=== PATIENT | female | born 1945 | race Caucasian/White ===

== ENCOUNTER 2017-08-21 08:28 | Day surgery (SDC) | payer MEDICARE, BC ==
[~2017-08-21] VITALS: Ht 167.6 cm; Wt 78.2 kg
[2017-08-21 08:51] VITALS: BP 190/90; PULSE 78; RESP 20; TEMP 98.3; O2SAT 98
[2017-08-21 09:47] VITALS: BP 156/79
[2017-08-21] MEDS ORDERED: SODIUM CHLORIDE 2 ML FLUSH PRN IV FLUSH (10:45)
[2017-08-21] MEDS ORDERED: IMPLANTED VASCULAR ACCESS DEVICE/PORT - SODIUM CHLORIDE FLUSH IV FLUSH SCH (10:45)
[2017-08-21] MEDS ORDERED: IMPLANTED VASCULAR ACCESS DEVICE/PORT - SODIUM CHLORIDE FLUSH PRN IV FLUSH (10:45)
[2017-08-21] MEDS ORDERED: SODIUM CHLOR 0.9% 1000 ML IV SCH (10:45)
[2017-08-21] MEDS ORDERED: LIDOCAINE HCL 1% 20 ML VIAL ONE (10:46)
[2017-08-21] MEDS ORDERED: MIDAZOLAM HCL 2 MG/2 ML VIAL ONE (11:33)
[2017-08-21 12:25] VITALS: BP 146/67; PULSE 58; RESP 20; TEMP 97.8; O2SAT 95
[2017-08-21 12:40] VITALS: BP 141/71; PULSE 56; RESP 20; O2SAT 92
[2017-08-21 13:10] VITALS: BP 146/68; PULSE 60; RESP 20; O2SAT 95
[2017-08-21 13:40] VITALS: BP 152/71; PULSE 69; RESP 20; O2SAT 95
--- NOTE | 2017-08-21 14:57 | RADRPT ---
EXAM DATE/TIME: 08/21/2017 11:36 [facility] COMPARISON: No previous studies available for comparison. INDICATIONS : Mesenteric lymph nodes. SEDATION TIME: 30 minutes BIOPSY SITE: Left MEDICATION(S): 1.) 4 mg midazolam (Versed) IV 2.) 200 mcg fentanyl (Sublimaze) IV DEVICE(S): 1.) 18 gauge Temno core biopsy needle MEDICAL HISTORY : Hypertension. SURGICAL HISTORY : Hysterectomy. ENCOUNTER: Initial ACUITY: 1 day PAIN SCORE: 0/10 LOCATION: Mesentery A total of two core specimen(s) were obtained and sent to the laboratory for pathologic evaluation. PROCEDURE: 1. CT guided abdomen biopsy. 2. Conscious sedation with continuous EKG and oximetry monitoring. 3. EKG and oximetry remained stable throughout the procedure. Prior to the procedure informed consent was obtained. Any appropriate prior imaging studies were rev iewed. Using automated exposure control and adjustment of the mA and/or kV according to patient size, radiat ion dose was kept as low as reasonably achievable to obtain optimal diagnostic quality images. DICOM format image data is available electronically for review and comparison. The site was prepped in a sterile fashion. Full sterile technique was used, including cap, mask, janet rile gloves and gown and a large sterile sheet. Hand hygiene and 2% chlorhexidine and/or betadine/al cohol prep was utilized per protocol for cutaneous antisepsis. The skin and subcutaneous tissues wer e infiltrated with local anesthetic solution. With CT guidance the previously identified target was localized. Biopsy was performed using the presc ribed needle as above. Adequate hemostasis was obtained with compression at the puncture site. Follow-up CT scan reveals no hemorrhage. The patient tolerated the procedure well and there were no complications. The patient was returned to the Radiology Outpatient Unit in stable condition. CONCLUSION: Uncomplicated CT guided biopsy. Alen Valdes MD on August 21, 2017 at 14:55 Board Certified Radiologist. This report was verified electronically.
[2017-08-21] MEDS ORDERED: SODIUM CHLORIDE 2 ML FLUSH BID IV FLUSH SCH (21:00)
== END 2017-08-21 14:34 | disposition home or self-care (01) ==
LOC: HRAD 08:28 → HRIP 08:29 → HRAD 12:45
PROVIDERS: ATTEND Internal Medicine
DX: C82.90 Follicular lymphoma, unspecified, unspecified site (principal); I10 Essential (primary) hypertension; K21.9 Gastro-esophageal reflux disease without esophagitis
CPT/HCPCS: 49180; 77012; 88184; 88185; 88305; 99152; 99153; J2250; J3010

== ENCOUNTER 2017-09-04 06:55 | Day surgery (SDC) | payer MEDICARE, BC ==
[~2017-09-04] VITALS: Ht 167.6 cm; Wt 78.0 kg
[2017-09-04] VITALS (9 sets, daily range): BP systolic 131–178; BP diastolic 63–86; PULSE 58–82; RESP 16–20; TEMP 97.6–98.3; O2SAT 96–97
[2017-09-04] MEDS ORDERED: TELM1TAB4 PO (07:24)
[2017-09-04] MEDS ORDERED: ASPI81TA23 PO (07:24)
[2017-09-04] MEDS ORDERED: VITA100021 SL (07:24)
[2017-09-04] MEDS ORDERED: PRIL20TA2 (07:24)
[2017-09-04] MEDS ORDERED: SODIUM CHLOR 0.9% 1000 ML IV SCH (07:45)
[2017-09-04 07:55] LABS: AUTOMATED NEUTROPHIL # 3.7 TH/MM3 (1.8-7.7); BASOPHIL % 0.4 % (0.0-2.0); EOSINOPHIL # 0.1 TH/MM3 (0-0.4); EOSINOPHIL % 2.2 % (0.0-4.0); HEMOGLOBIN 13.5 GM/DL (11.6-15.3); LYMPHOCYTE # 0.7 TH/MM3 (1.0-4.8); MEAN CELL VOLUME 87.7 FL (80.0-100.0); MEAN CORPUSCULAR HEMOGLOBIN 31.2 PG (27.0-34.0); MEAN CORPUSCULAR HGB CONC 35.5 % (32.0-36.0); MEAN PLATELET VOLUME 7.2 FL (7.0-11.0); MONO % 8.5 % (0.0-8.0); MONOCYTE # 0.4 TH/MM3 (0-0.9); NEUT % 74.9 % (16.0-70.0); PLATELET COUNT 204 TH/MM3 (150-450); RED BLOOD COUNT 4.33 MIL/MM3 (4.00-5.30); RED CELL DISTRIBUTION WIDTH 13.7 % (11.6-17.2); WHITE BLOOD COUNT 4.9 TH/MM3 (4.0-11.0)
[2017-09-04] MEDS ORDERED: MIDAZOLAM HCL 2 MG/2 ML VIAL ONE ×2 (08:13→08:55)
[2017-09-04] MEDS ORDERED: fentaNYL CITRATE 250 MCG/5 ML AMP ONE (08:14)
[2017-09-04] MEDS ORDERED: LIDOCAINE HCL 1% 20 ML VIAL ONE (08:22)
--- NOTE | 2017-09-04 09:09 | PD.RAD ---
Post Procedure Progress Note Pre Procedure Diagnosis: (1) Lymphoma Post Procedure Diagnosis: (1) Lymphoma Procedure Date: Sep 04, 2017 Supervising Radiologist: Stanislaw Stubbs Estimated blood loss: 3cc Anesthesia: Local, Conscious Sedation Plan of Activity Patient to Unit: ROPU Patient Condition: Good Additional Comments: Left Iliac wing bone marrow biopsy completed Full dictated report to follow. See PACS Report for procedural detail/treatment Stanislaw Stubbs MD Sep 04, 2017 09:09
--- NOTE | 2017-09-04 09:44 | RADRPT ---
EXAM DATE/TIME: 09/04/2017 08:38 [facility] COMPARISON: CT NEEDLE BIOPSY ABDOMEN, August 21, 2017, 11:36. INDICATIONS : Lymphoma. SEDATION TIME: 30 minutes BIOPSY SITE: Left iliac MEDICATION(S): 1.) 5 mg midazolam (Versed) IV 2.) 250 mcg fentanyl (Sublimaze) IV DEVICE(S): 1.) 11 gauge Bone marrow biopsy needle MEDICAL HISTORY : Lymphoma. SURGICAL HISTORY : Cholecystectomy Appendectomy. Hysterectomy. ENCOUNTER: Initial ACUITY: 1 day PAIN SCORE: 0/10 LOCATION: Left pelvis A total of one core specimen(s) were obtained and sent to the laboratory for pathologic evaluation. PROCEDURE: 1. CT guided bone marrow biopsy. 2. Conscious sedation with continuous EKG and oximetry monitoring. Prior to the procedure informed consent was obtained. Any appropriate prior imaging studies were rev iewed. Using automated exposure control and adjustment of the mA and/or kV according to patient size , radiation dose was kept as low as reasonably achievable to obtain optimal diagnostic quality images . DICOM format image data is available electronically for review and comparison. The site was prepped in a sterile fashion. Full sterile technique was used, including cap, mask, janet rile gloves and gown and a large sterile sheet. Hand hygiene and 2% chlorhexidine and/or betadine/al cohol prep was utilized per protocol for cutaneous antisepsis. The skin and subcutaneous tissues wer e infiltrated with local anesthetic solution. With CT guidance the previously identified target was localized. Biopsy was performed using the presc ribed needle as above. Following biopsy marrow aspiration was performed with repeat puncture. Adequa te hemostasis was obtained with compression at the puncture site. Follow-up CT scan reveals no hemorrhage. Conscious sedation was performed with the prescribed dosages and duration as above in the presence of an independent trained radiology nurse to assist in the monitoring of the patient. EKG and oximetry remained stable throughout the procedure. The patient tolerated the procedure well and there were no complications. The patient was sent to Radiology Outpatient Unit in stable condition. CONCLUSION: 1. Uncomplicated CT guided bone marrow aspirate. 2. Uncomplicated CT guided bone marrow biopsy. Stanislaw Stubbs MD on September 04, 2017 at 9:42 Board Certified Radiologist. This report was verified electronically.
== END 2017-09-04 12:10 | disposition home or self-care (01) ==
LOC: HRAD 06:55 → HRIP 06:55 → HRAD 12:10
PROVIDERS: ATTEND Internal Medicine
DX: C82.90 Follicular lymphoma, unspecified, unspecified site (principal); I10 Essential (primary) hypertension; K21.9 Gastro-esophageal reflux disease without esophagitis
CPT/HCPCS: 38222; 77012; 85025; 85097; 88184; 88185; 88237; 88264; 88280; 88305; 88311; 88313; 88341; 88342; 99152; 99153; C1830; J2250; J3010

== ENCOUNTER 2017-09-18 05:50 | Day surgery (SDC) | payer MEDICARE, BC ==
[~2017-09-18] VITALS: Ht 167.6 cm; Wt 83.0 kg
[2017-09-18] VITALS (8 sets, daily range): BP systolic 116–153; BP diastolic 53–82; PULSE 16–83; RESP 16–20; TEMP 96.6–98.5; O2SAT 97–100
[~2017-09-18 05:50] MED LIST: ASPI81TA23 PO; PRIL20TA2; TELM1TAB4 PO; VITA100021 SL
[2017-09-18] MEDS ORDERED: OPCOSOL EACH EYE (06:50)
[2017-09-18] MEDS ORDERED: MUPIROCIN 2% OINT 1 APPLIC/GM SYR EACH NARE SCH (07:15)
[2017-09-18] MEDS ORDERED: ceFAZolin 2 GM PREMIX 50 ML - implanted port/tunneled catheter insertion IV SCH (07:15)
[2017-09-18] MEDS ORDERED: VANCOMYCIN 1000 MG/NS 250 ML - implanted port/tunneled catheter IV SCH ×2 (07:15)
[2017-09-18] MEDS ORDERED: SODIUM CHLORIDE 0.9% 1000 ML IV SCH (07:15)
[2017-09-18 07:33] LABS: PROTHROMBIN TIME - PATIENT 10.4 SEC (9.8-11.6)
[2017-09-18] MEDS ORDERED: MIDAZOLAM HCL 2 MG/2 ML VIAL ONE (08:04)
[2017-09-18] MEDS ORDERED: LIDOCAINE 1%/EPINEPHrine 1:100,000 SOLN 30 ML VIAL ONE (08:14)
--- NOTE | 2017-09-18 09:05 | PD.RAD ---
Post Procedure Progress Note Pre Procedure Diagnosis: (1) Lymphoma Post Procedure Diagnosis: (1) Lymphoma Procedure Date: Sep 18, 2017 Supervising Radiologist: Stanislaw Stubbs Estimated blood loss: 2cc Anesthesia: Local, Conscious Sedation Plan of Activity Patient to Unit: ROPU Patient Condition: Good Additional Comments: Port placed via the right IJ catheter in good position OK for use See PACS Report for procedural detail/treatment Stanislaw Stubbs MD Sep 18, 2017 09:05
[2017-09-18] MEDS ORDERED: SODIUM CHLORIDE 0.9% FLUSH 10 ML FLUSH IVF PRN (09:15)
--- NOTE | 2017-09-18 10:15 | RADRPT ---
EXAM DATE/TIME: 09/18/2017 09:26 [facility] COMPARISON: No previous studies available for comparison. INDICATIONS : Patient with history of lymphoma in need of Gayar-e-Ibbd placement. MEDICAL HISTORY : GERD, HTN, Mesenteric root lymphadenopathy SURGICAL HISTORY : Mesenetric lymphadenopathy biopsy, Upper endoscopy, Colonoscopy, Cholecystectomy ENCOUNTER: Initial ACUITY: 1 month PAIN SCORE: 0/10 FLUORO TIME: 1.2 minutes IMAGE SERIES: 1 SEDATION TIME: 20 minutes ACCESS: Right internal jugular vein SEDATION: 1.) 4 mg midazolam (Versed) IV 2.) 200 mcg fentanyl (Sublimaze) IV Prophylactic antibiotics were administered with appropriate pre-procedure timing. Vancomycin within 2 hours of procedure, Ancef (or alternative) within 1 hour of procedure. DEVICE: 1. 8 [place] single lumen Bard Power Port PROCEDURE : 1. Continuous pulse oximetry and EKG monitoring. 2. Intravenous conscious sedation. 3. Ultrasound guidance for venous access. 4. Fluoroscopic guided implantable central venous port placement. The patient was placed supine. The neck was prepped in sterile fashion. Full sterile technique was u sed, including cap, mask, sterile gloves and gown, and a large sterile sheet. Hand hygiene and 2% ch lorhexidine Betadine was utilized per protocol for cutaneous antisepsis with appropriate dry time for site. Sterile gel and sterile probe cover were utilized for ultrasound guidance. The skin and sub cutaneous tissues were infiltrated with local anesthetic solution. Under direct ultrasound guidance, central venous access was accomplished via the right internal jugul ar vein. The ultrasound images depicting access guidance were stored and saved to PACS for permanent record. A subcutaneous pocket was created using blunt dissection. The port was introduced to the p ocket. The catheter tubing was fed through a subcutaneous tunnel to the venotomy site. The catheter tubing was cut to a suitable length and then was introduced through a valved Peel-Away sheath and po sitioned with catheter tubing tip at the cavo-atrial junction level. The port was sewn to the deep ti ssues of the chest wall. The pocket incision was closed with subcuticular Vicryl suture. Steri-Strip s were applied. The port was flushed and locked with heparin solution per protocol. Sterile dressin g was applied to the site. The patient tolerated the procedure well. Conscious sedation was performed with the prescribed dosages and duration as above in the presence of an independent trained radiology nurse to assist in the monitoring of the patient. EKG and oximetry remained stable throughout the procedure. The patient tolerated the procedure well and there were no complications. The patient was sent to post anesthesia recovery in stable condition. CONCLUSION: Uncomplicated ultrasound and fluoroscopic guided implanted central venous port catheter placement as described in detail above. An 8 [place] Power port was placed. Stanislaw Stubbs MD on September 18, 2017 at 10:13 Board Certified Radiologist. This report was verified electronically.
== END 2017-09-18 11:30 | disposition home or self-care (01) ==
LOC: HROP 05:50 → HRIP 05:50 → HROP 11:30
PROVIDERS: ATTEND Internal Medicine
DX: Z45.2 Encounter for adjustment and management of vascular access device (principal); C82.90 Follicular lymphoma, unspecified, unspecified site; I10 Essential (primary) hypertension
CPT/HCPCS: 36561; 76937; 77001; 85610; 85730; 99152; 99153; C1788; J0690; J1642; J2250; J3010; J3370; J7050

== ENCOUNTER 2017-10-22 07:19 | Observation (INO) | payer MEDICARE, BC ==
[~2017-10-22] VITALS: Ht 167.6 cm; Wt 78.0 kg
[~2017-10-22 07:19] MED LIST changes: +OPCOSOL EACH EYE
[2017-10-22 07:20] VITALS: BP 132/62; PULSE 88; RESP 16; TEMP 100.4; O2SAT 97
[2017-10-22] MEDS ORDERED: PROC10TA PO (07:36)
--- NOTE | 2017-10-22 07:45 | PD ---
HPI Chief Complaint: Fever Time Seen by Provider: 07:28 Travel History International Travel<30 days: No Contact w/Intl Traveler<30days: No Traveled to known affect area: No History of Present Illness HPI 72-year-old female presents because she had fever. She had chemotherapy yesterday. 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 She is on chemotherapy with bendamustine and Rituxan. She had her second treatment yesterday. After her first treatment she had some skin rash and was given prednisone. She has had fever this morning from 101.3-101.5. There has not been any cough. There is been no dysuria. She has not noted any rash. PFSH Past Medical History Chemotherapy: Yes (10/21/2017) Diminished Hearing: No GERD: Yes Hypertension: Yes Immunizations Current: No Influenza Vaccination: No ?: Not Past Surgical History Abdominal Surgery: Yes (hysterectomy CHOLECYSTEC, APPENDECTOMY) AICD: No Appendectomy: Yes Cholecystectomy: Yes Gynecologic Surgery: Yes (HYSTERECTOMY) Hysterectomy: Yes Social History Alcohol Use: No Tobacco Use: No Allergies-Medications (Allergen,Severity, Reaction): Coded Allergies: adhesive tape (Verified Allergy, Mild, Hives, 10/22/17) Reported Meds & Prescriptions Reported Meds & Active Scripts Active Reported Prochlorperazine Maleate 10 Mg Tab 10 Mg PO Q6H PRN Opcon-A 0.027-0.315 % (Naphazoline W/ Pheniramine) 0.09828 %-0.315 % Lien 1 EACH EYE Prilosec (Omeprazole Magnesium) 20 Mg Tab Review of Systems General / Constitutional: Positive: Fever Eyes: No: Diploplia, Blurred Vision HENT: No: Headaches Cardiovascular: No: Chest Pain or Discomfort, Palpitations Respiratory: No: Cough, Shortness of Breath Gastrointestinal: No: Nausea, Vomiting, Abdominal Pain Skin: Positive Rash Neurologic: No: Weakness, Dizziness Psychiatric: No: Depression Endocrine: No: Heat Intolerance Hematologic/Lymphatic: No: Easy Bruising Physical Exam Narrative GENERAL: Well-developed female. Initial temp is 100.4, repeat is 101.1 SKIN: Focused skin assessment warm/dry. There is some flushing of the arms and the face HEAD: Atraumatic. Normocephalic. EYES: Pupils equal and round. No scleral icterus. No injection or drainage. ENT: No nasal bleeding or discharge. Mucous membranes pink and moist. NECK: Trachea midline. No JVD. CARDIOVASCULAR: Regular rate and rhythm. No murmur appreciated. RESPIRATORY: No accessory muscle use. Clear to auscultation. Breath sounds equal bilaterally. GASTROINTESTINAL: Abdomen soft, non-tender, nondistended. Hepatic and splenic margins not palpable. MUSCULOSKELETAL: No obvious deformities. No clubbing. No cyanosis. No edema. NEUROLOGICAL: Awake and alert. No obvious cranial nerve deficits. Motor grossly within normal limits. Normal speech. PSYCHIATRIC: Appropriate mood and affect; insight and judgment normal. Data Data Last Documented VS Vital Signs Date Time Temp Pulse Resp B/P (MAP) Pulse Ox O2 Delivery O2 Flow Rate FiO2 10/22/17 08:37 101.1 83 18 140/58 (85) 97 Orders Orders Complete Blood Count With Diff (10/22/17 07:39) Comprehensive Metabolic Panel (10/22/17 07:39) Urinalysis - C+S If Indicated (10/22/17 07:39) Blood Culture (10/22/17 07:39) Potassium Chloride (Kcl) (10/22/17 09:00) Diphenhydramine (Benadryl) (10/22/17 09:00) Cefepime Inj (Maxipime Inj) (10/22/17 09:00) Chest, Pa & Lat (10/22/17 08:59) Labs Laboratory Tests Test 10/22/17 07:40 10/22/17 08:00 Urine Collection Type VOIDED Urine Color YELLOW Urine Turbidity CLEAR Urine pH 6.0 Urine Specific [place] 1.025 Urine Protein 100 mg/dL Urine Glucose (UA) NEG mg/dL Urine Ketones TRACE mg/dL Urine Occult Blood MOD Urine Nitrite NEG Urine Bilirubin NEG Urine Urobilinogen 0.2 MG/DL Urine Leukocyte Esterase NEG Urine RBC 4-9 /hpf Urine WBC 0-2 /hpf Urine Squamous Epithelial Cells 0-3 /hpf Urine Mucus FEW /lpf Microscopic Urinalysis Comment CULT NOT INDICATED White Blood Count 6.5 TH/MM3 Red Blood Count 3.64 MIL/MM3 Hemoglobin 11.2 GM/DL Hematocrit 32.1 % Mean Corpuscular Volume 88.1 FL Mean Corpuscular Hemoglobin 30.6 PG Mean Corpuscular Hemoglobin Concent 34.8 % Red Cell Distribution Width 13.5 % Platelet Count 115 TH/MM3 Mean Platelet Volume 7.2 FL Neutrophils (%) (Auto) 86.0 % Lymphocytes (%) (Auto) 0.7 % Monocytes (%) (Auto) 8.3 % Eosinophils (%) (Auto) 4.7 % Basophils (%) (Auto) 0.3 % Neutrophils # (Auto) 5.7 TH/MM3 Lymphocytes # (Auto) 0.0 TH/MM3 Monocytes # (Auto) 0.5 TH/MM3 Eosinophils # (Auto) 0.3 TH/MM3 Basophils # (Auto) 0.0 TH/MM3 CBC Comment DIFF FINAL Differential Comment Blood Urea Nitrogen 12 MG/DL Creatinine 0.80 MG/DL Random Glucose 109 MG/DL Total Protein 5.8 GM/DL Albumin 3.3 GM/DL Calcium Level 8.2 MG/DL Alkaline Phosphatase 53 U/L Aspartate Amino Transf (AST/SGOT) 26 U/L Alanine Aminotransferase (ALT/SGPT) 39 U/L Total Bilirubin 0.6 MG/DL Sodium Level 138 MEQ/L Potassium Level 3.0 MEQ/L Chloride Level 106 MEQ/L Carbon Dioxide Level 23.6 MEQ/L Anion Gap 8 MEQ/L Estimat Glomerular Filtration Rate 71 ML/MIN MDM Medical Decision Making Medical Screen Exam Complete: Yes Emergency Medical Condition: Yes Medical Record Reviewed: Yes Differential Diagnosis Differential includes sepsis, neutropenia, UTI, pneumonia Narrative Course Urine is negative for infection. White count is 6.5 with 86% polys the absolute neutrophil count of 5.7. I have spoken with Dr. Harry who is the patient's oncologist. She recommends that the patient should be put in observation and given cefepime Diagnosis Primary Impression: Fever Additional Impression: Immunocompromised Admitting Information Admitting Physician Requests: Observation Jacob Francis MD Oct 22, 2017 07:45
[2017-10-22 07:53] LABS: BLOOD, URINE MOD (NEG); GLUCOSE,URINE NEG (NEG); KETONE, URINE TRACE mg/dL (NEG); NITRITE,URINE NEG (NEG); URINE COLOR YELLOW (YELLW/STRAW); URINE LEUKOCYTE ESTERASE NEG (NEG)
[2017-10-22 08:00] LABS: BILIRUBIN, URINE NEG (NEG)
[2017-10-22 08:04] LABS: MUCUS URINE FEW /lpf (OCC)
[2017-10-22 08:05] LABS: SQUAMOUS EPITHELIAL CELL URINE 0-3 /hpf (0-5); WBC, URINE 0-2 /hpf (0-5)
[2017-10-22 08:32] LABS: AUTOMATED NEUTROPHIL # 5.7 TH/MM3 (1.8-7.7); BASOPHIL % 0.3 % (0.0-2.0); EOSINOPHIL # 0.3 TH/MM3 (0-0.4); EOSINOPHIL % 4.7 % (0.0-4.0); HEMATOCRIT 32.1 % (35.0-46.0); HEMOGLOBIN 11.2 GM/DL (11.6-15.3); LYMPH % 0.7 % (9.0-44.0); MEAN CELL VOLUME 88.1 FL (80.0-100.0); MEAN CORPUSCULAR HEMOGLOBIN 30.6 PG (27.0-34.0); MEAN CORPUSCULAR HGB CONC 34.8 % (32.0-36.0); MEAN PLATELET VOLUME 7.2 FL (7.0-11.0); MONO % 8.3 % (0.0-8.0); MONOCYTE # 0.5 TH/MM3 (0-0.9); PLATELET COUNT 115 TH/MM3 (150-450); RED BLOOD COUNT 3.64 MIL/MM3 (4.00-5.30); RED CELL DISTRIBUTION WIDTH 13.5 % (11.6-17.2); WHITE BLOOD COUNT 6.5 TH/MM3 (4.0-11.0)
[2017-10-22 08:37] VITALS: BP 140/58; PULSE 83; RESP 18; TEMP 101.1; O2SAT 97
[2017-10-22 08:44] LABS: CHLORIDE 106 MEQ/L (98-107); SODIUM (NA) 138 MEQ/L (136-145)
[2017-10-22 08:48] LABS: ALBUMIN 3.3 GM/DL (3.4-5.0); BICARBONATE 23.6 MEQ/L (21.0-32.0); BLOOD UREA NITROGEN 12 MG/DL (7-18); CALCIUM 8.2 MG/DL (8.5-10.1); GLUCOSE,RANDOM 109 MG/DL (74-106)
[2017-10-22 08:51] LABS: ALT (GPT) 39 U/L (10-53); AST (GOT) 26 U/L (15-37); GLOMERULAR FILTRATION RATE 71 ML/MIN (>89)
[2017-10-22 08:53] LABS: TOTAL BILIRUBIN ADULT 0.6 MG/DL (0.2-1.0); TOTAL PROTEIN 5.8 GM/DL (6.4-8.2)
[2017-10-22 08:54] LABS: ALKALINE PHOSPHATASE 53 U/L (45-117)
[2017-10-22] MEDS ORDERED: CEFEPIME INJ 2,000 MG in SODIUM CHLORIDE 0.9% INJ 100 ML IV ONE (09:00)
[2017-10-22] MEDS ORDERED: POTASSIUM CHLORIDE 20 MEQ CONTROLLED RELEASE TAB PO ONE (09:00)
[2017-10-22] MEDS ORDERED: diphenhydrAMINE HCL 25 MG CAP PO ONE (09:00)
--- NOTE | 2017-10-22 09:27 | RADRPT ---
EXAM DATE/TIME: 10/22/2017 09:07 [facility] COMPARISON: No previous studies available for comparison. INDICATIONS : Fever after chemo treatment yesterday. MEDICAL HISTORY : Gastroesophageal reflux disease. Follicular lymphoma. SURGICAL HISTORY : Appendectomy. Cholecystectomy. Hysterectomy. Infusaport. ENCOUNTER: Initial ACUITY: 1 day PAIN SCORE: 0/10 LOCATION: chest FINDINGS: A right internal jugular [id number] has its tip in the superior vena cava. No pneumothorax is note d. The heart is normal. The pulmonary vascular pattern is normal. The lungs are clear. CONCLUSION: No acute cardiopulmonary disease. Alen Valdes MD on October 22, 2017 at 9:24 Board Certified Radiologist. This report was verified electronically.
--- NOTE | 2017-10-22 13:55 | HHI.HP ---
HPI Service [facility] Primary Care Physician Shae Melgar M.D. Admission Diagnosis FEVER, IMMUNOCOMPROMISE Diagnoses: Chief Complaint: Fever Travel History International Travel<30 Days: No Contact w/Intl Traveler <30 Da: No Traveled to Known Affected Are: No History of Present Illness 72-year-old white female being admitted for fever immunosuppression state. Patient was in her usual state of health until sometime early this morning when her noted that she looked weak and the patient experienced subjective fevers and chills. She also had new onset nausea with no vomiting. Denies any dysuria, diarrhea, or abdominal pain. Denies any new cough or shortness of breath. Patient reports having her second round of chemotherapy yesterday. This morning her noted that she had a fever of greater than 100.5 and thus decided to bring her to the emergency department. says that the patient occasionally will have a red rash around her neck and her face associated with the chemotherapy sessions. Case discussed with ER physician who discussed case with oncologist who recommended for the patient to be admitted and started on cefepime and given a one-time dose of diphenhydramine.. Chest x-ray which I independently reviewed showed no acute infiltrates. Blood cultures were drawn. Potassium was incidentally noted to be low at 3.0. Review of Systems Except as stated in HPI: all other systems reviewed are Neg Past Family Social History Past Medical History Follicular lymphoma Allergies: Coded Allergies: adhesive tape (Verified Allergy, Mild, Hives, 10/22/17) Family History Mother with pancreatic cancer, father with heart disease Social History Stopped smoking 20 years ago approximately Physical Exam Vital Signs Vital Signs Date Time Temp Pulse Resp B/P (MAP) Pulse Ox O2 Delivery O2 Flow Rate FiO2 10/22/17 10:40 10/22/17 08:37 101.1 83 18 140/58 (85) 97 10/22/17 07:20 100.4 88 16 132/62 (85) 97 Physical Exam VS: afebrile GENERAL: Lying in bed, well-nourished for age, no acute distress SKIN: Warm and dry. EYES: No scleral icterus. No injection or drainage. ENT: No nasal bleeding or discharge. Mucous membranes pink and moist. Impressive midline torus CARDIOVASCULAR: Regular rate and rhythm. no murmurs RESPIRATORY: No accessory muscle use. Clear to auscultation. Breath sounds equal bilaterally. GASTROINTESTINAL: Abdomen soft, non-tender, nondistended. Extremities: No clubbing, cyanosis, or edema. No obvious deformities. MUSCULOSKELETAL: adequate muscle bulk and tone for age and habitus NEUROLOGICAL: Awake and alert. No obvious cranial nerve deficits. No facial droop nor slurred speech noted. No nuchal rigidity PSYCHIATRIC: Appropriate mood and affect; insight and judgment normal. Laboratory Laboratory Tests Test 10/22/17 07:40 10/22/17 08:00 Urine Collection Type VOIDED Urine Color YELLOW Urine Turbidity CLEAR Urine pH 6.0 Urine Specific [place] 1.025 Urine Protein 100 Urine Glucose (UA) NEG Urine Ketones TRACE Urine Occult Blood MOD Urine Nitrite NEG Urine Bilirubin NEG Urine Urobilinogen 0.2 Urine Leukocyte Esterase NEG Urine RBC 4-9 Urine WBC 0-2 Urine Squamous Epithelial Cells 0-3 Urine Mucus FEW Microscopic Urinalysis Comment CULT NOT INDICATED White Blood Count 6.5 Red Blood Count 3.64 Hemoglobin 11.2 Hematocrit 32.1 Mean Corpuscular Volume 88.1 Mean Corpuscular Hemoglobin 30.6 Mean Corpuscular Hemoglobin Concent 34.8 Red Cell Distribution Width 13.5 Platelet Count 115 Mean Platelet Volume 7.2 Neutrophils (%) (Auto) 86.0 Lymphocytes (%) (Auto) 0.7 Monocytes (%) (Auto) 8.3 Eosinophils (%) (Auto) 4.7 Basophils (%) (Auto) 0.3 Neutrophils # (Auto) 5.7 Lymphocytes # (Auto) 0.0 Monocytes # (Auto) 0.5 Eosinophils # (Auto) 0.3 Basophils # (Auto) 0.0 CBC Comment DIFF FINAL Differential Comment Blood Urea Nitrogen 12 Creatinine 0.80 Random Glucose 109 Total Protein 5.8 Albumin 3.3 Calcium Level 8.2 Alkaline Phosphatase 53 Aspartate Amino Transf (AST/SGOT) 26 Alanine Aminotransferase (ALT/SGPT) 39 Total Bilirubin 0.6 Sodium Level 138 Potassium Level 3.0 Chloride Level 106 Carbon Dioxide Level 23.6 Anion Gap 8 Estimat Glomerular Filtration Rate 71 Date/Time Source Procedure Growth Status 10/22/17 08:05 Blood Other Aerobic Blood Culture Pending Received 10/22/17 08:05 Blood Other Anaerobic Blood Culture Pending Received Result Diagram: 10/22/1779910/22/17 08 Imaging Last Impressions Chest X-Ray 10/22/17 0859 Signed Impressions: Service Date/Time: Sunday, October 22, 2017 09:07 - CONCLUSION: No acute cardiopulmonary disease. MD Melanie Canales VTE Risk Assessment Caprinnelson VTE Risk Assessment: Mod/High Risk (score >= 2) Caprini Risk Assessment Model Point Value = 1 Point Value = 2 Point Value = 3 Point Value = 5 Age 41-60 Minor surgery BMI > 25 kg/m2 Swollen legs Varicose veins or History of unexplained or recurrent spontaneous Oral contraceptives or hormone replacement Sepsis (< 1 month) Serious lung disease, including pneumonia (< 1 month) Abnormal pulmonary function Acute myocardial infarction Congestive heart failure (< 1 month) History of inflammatory bowel disease Medical patient at bed rest Age 61-74 Arthroscopic surgery Major open surgery (> 45 min) Laparoscopic surgery (> 45 min) Malignancy Confined to bed (> 72 hours) Immobilizing plaster cast Central venous access Age >= 75 History of VTE Family history of VTE Factor V Leiden Prothrombin [id number] Lupus anticoagulant Anticardiolipin antibodies Elevated serum homocysteine Heparin-induced thrombocytopenia Other congenital or acquired thrombophilia Stroke (< 1 month) Elective arthroplasty Hip, pelvis, or leg fracture Acute spinal cord injury (< 1 month) Prophylaxis Regimen Total Risk Factor Score Risk Level Prophylaxis Regimen 0-1 Low Early ambulation 2 Moderate Order ONE of the following: *Sequential Compression Device (SCD) *Heparin 5000 units SQ BID 3-4 Higher Order ONE of the following medications: *Heparin 5000 units SQ TID *Enoxaparin/Lovenox 40 mg SQ daily (WT < 150 kg, CrCl > 30 mL/min) *Enoxaparin/Lovenox 30 mg SQ daily (WT < 150 kg, CrCl > 10-29 mL/min) *Enoxaparin/Lovenox 30 mg SQ BID (WT < 150 kg, CrCl > 30 mL/min) AND/OR *Sequential Compression Device (SCD) 5 or more Highest Order ONE of the following medications: *Heparin 5000 units SQ TID (Preferred with Epidurals) *Enoxaparin/Lovenox 40 mg SQ daily (WT < 150 kg, CrCl > 30 mL/min) *Enoxaparin/Lovenox 30 mg SQ daily (WT < 150 kg, CrCl > 10-29 mL/min) *Enoxaparin/Lovenox 30 mg SQ BID (WT < 150 kg, CrCl > 30 mL/min) AND *Sequential Compression Device (SCD) Assessment and Plan Assessment and Plan 72-year-old white female being admitted for fever and immunosuppressive state Fever in immunosuppressive state -Blood cultures obtained, chest x-ray negative. cefepime per oncology recommendations, consulting oncology. Will hold off on LP for now. Initial blood work is unremarkable Hypokalemia -P.o. potassium given in ER, we will check magnesium level, recheck levels in a.m. Lovenox Jaden Lopez MD Oct 22, 2017 13:55
[2017-10-22] MEDS ORDERED: PROCHLORPERAZINE MALEATE 10 MG TAB PO PRN (14:00)
[2017-10-22] MEDS: CEFEPIME INJ 2,000 MG in SODIUM CHLORIDE 0.9% INJ 100 ML IV SCH (16:21)
[2017-10-22 20:00] VITALS: BP 129/69; PULSE 93; RESP 20; TEMP 101.4; O2SAT 97
[2017-10-22] MEDS ORDERED: ENOXAPARIN SODIUM 30 MG/0.3 ML SYRINGE SQ SCH (20:00)
[2017-10-22] MEDS ORDERED: ACETAMINOPHEN 325 MG TAB PO PRN (21:00)
[2017-10-23] VITALS: BP 155/66; PULSE 91; RESP 20; TEMP 98.9; O2SAT 96
[2017-10-23] MEDS: CEFEPIME INJ 2,000 MG in SODIUM CHLORIDE 0.9% INJ 100 ML IV SCH ×2 (00:59→08:22)
[2017-10-23 06:42] LABS: BICARBONATE 23.7 MEQ/L (21.0-32.0)
[2017-10-23 06:45] LABS: CREATININE 0.69 MG/DL (0.50-1.00)
--- NOTE | 2017-10-23 07:57 | MB ---
cc: Candida Harry MD DATE: 10/23/2017 CHIEF COMPLAINT: 1. Fever. 2. Stage II follicular lymphoma. 3. Recent chemotherapy. HISTORY OF PRESENT ILLNESS: Ms. Cortez is a 72-year-old lady who is currently being treated for stage II follicular lymphoma with adenopathy that is present at the root of the mesentery. She was symptomatic with abdominal pain. She is currently being treated with bendamustine and rituximab. She received her first dose of bendamustine 1 month ago and on 10/21/2017 she received bendamustine and rituximab as part of her second cycle of chemotherapy. She presented to the hospital with fever to 101 at home. She denies dysuria, abdominal pain, diarrhea, cough. She did report headache; however, she stated that she was having an intense conversation with the friend and looking sideways for approximately 6 hours. She says that her headache has resolved. She is currently doing well and is back to her baseline state. Pending repeat vital signs to examine temperature. LABORATORY DATA: Laboratory studies show a white blood cell count of 6.5, hemoglobin 11.2, platelet count 115,000. Chemistry studies significant for a low potassium at 3.0. PAST MEDICAL HISTORY: Stage II follicular lymphoma. REVIEW OF SYSTEMS: As stated in the HPI. ALLERGIES: ADHESIVE TAPE. FAMILY HISTORY: Mother with a history of pancreatic cancer. SOCIAL HISTORY: Denies current tobacco, alcohol or illegal drug use. PHYSICAL EXAMINATION: GENERAL: A well-developed, well-nourished lady laying in bed in no distress. SKIN: Warm and dry. EYES: No scleral icterus. NOSE: No nasal discharge. CARDIOVASCULAR: Regular rate and rhythm. RESPIRATORY: Clear to auscultation bilaterally. ABDOMEN: Soft, nontender, nondistended. Bowel sounds present. EXTREMITIES: No edema. MUSCULOSKELETAL: Normal tone. NEUROLOGIC: Awake and alert, no focal deficit. PSYCHIATRIC: Appropriate mood and affect. IMAGING STUDIES: Chest x-ray with no evidence of infiltrates. ASSESSMENT AND PLAN: 1. Stage II follicular lymphoma. Plan for treatment with 4 cycles of bendamustine and Rituxan followed by maintenance Rituxan. Will resume treatment upon discharge from the hospital. 2. Fever. This close to chemotherapy is likely due to the chemotherapy itself. If she remains afebrile and is doing well, we will consider discharge home tomorrow with close follow up in clinic. MD TAHMINA Pedroza/ALISHA , 07:37 AM , 07:56 AM ROBERTH
[2017-10-23 08:30] VITALS: BP 147/66; PULSE 82; RESP 16; TEMP 98.3; O2SAT 97
[2017-10-23 12:48] VITALS: BP 147/68; PULSE 87; RESP 16; TEMP 99.3; O2SAT 98
--- NOTE | 2017-10-23 14:43 | HHI.DCPOC ---
Discharge Care Plan Diagnosis: (1) Immunosuppressive-induced fever (2) Immunocompromised (3) Lymphoma Goals to Promote Your Health * To prevent worsening of your condition and complications * To maintain your health at the optimal level Directions to Meet Your Goals Take your medications as prescribed Follow your dietary instruction Follow activity as directed Keep your appointments as scheduled Take your immunizations and boosters as scheduled If your symptoms worsen call your PCP, if no PCP go to Urgent Care Center or Emergency Room Smoking is Dangerous to Your Health. Avoid second hand smoke Call the 24-hour hour crisis hotline for domestic abuse at Jaden Lopez MD Oct 23, 2017 14:43
--- NOTE | 2017-10-23 14:43 | HHI.PR ---
Subjective Remarks Nursing denies any deterioration since last night. Patient feels well today, no fevers noted since midnight objectively or subjectively. Objective Vital Signs Date Time Temp Pulse Resp B/P (MAP) Pulse Ox O2 Delivery O2 Flow Rate FiO2 10/23/17 12:48 99.3 87 16 147/68 (94) 98 10/23/17 08:30 98.3 82 16 147/66 (93) 97 10/23/17 00:00 98.9 91 20 155/66 (95) 96 10/22/17 20:00 101.4 93 20 129/69 (89) 97 I/O 10/22/17 10/22/17 10/22/17 10/23/17 10/23/17 10/23/17 06:59 14:59 22:59 06:59 14:59 22:59 Intake Total 100 ml 750 ml Balance 100 ml 750 ml Intake Oral 750 ml IV Total 100 ml # Voids 3 3 # Bowel Movements 0 Result Diagram: 10/22/17 0800 10/23/17 0445 Objective Remarks Clear lungs bilaterally, unlabored breathing, no acute distress, no cyanosis A/P Assessment and Plan Last fever was noted at 8 PM. Discussed case with oncology, stable for discharge without any further need for antibiotics. Fever was likely due to recent chemotherapy session. Patient has met maximal benefit from hospitalization and is clinically stable for discharge. Jaden Lopez MD Oct 23, 2017 14:43
[2017-10-23] MEDS ORDERED: [UNRECOGNIZED DRUG - OTHER] IV FLUSH PRN (16:15)
[2017-10-23] MEDS ORDERED: SODIUM CHLORIDE IV FLUSH PRN (16:15)
[2017-10-24] MEDS ORDERED: [UNRECOGNIZED DRUG - OTHER] IV FLUSH SCH (09:00)
[2017-10-24] MEDS ORDERED: SODIUM CHLORIDE IV FLUSH SCH (09:00)
== END 2017-10-23 17:25 | disposition home or self-care (01) ==
LOC: PHED 07:19 → PHEDA 09:16 → PH3A 10:49
PROVIDERS: ADMIT Hospitalist; ATTEND Hospitalist
DX: R50.9 Fever, unspecified (principal); E87.6 Hypokalemia; R11.0 Nausea; R21 Rash and other nonspecific skin eruption; K21.9 Gastro-esophageal reflux disease without esophagitis; C82.90 Follicular lymphoma, unspecified, unspecified site; I10 Essential (primary) hypertension; R51 Headache; Z87.891 Personal history of nicotine dependence
CPT/HCPCS: 71046; 80048; 80053; 81001; 83735; 85025; 87040; 96365; 96366; 96376; 99285; G0378; J0692; J1642